=== PATIENT | male | born 1995 | race Caucasian/White ===

== ENCOUNTER 2016-11-21 14:59 | Emergency (ER) | payer OTHER ==
[2016-11-21 15:33] VITALS: BP 142/72
--- NOTE | 2016-11-21 15:36 | UC ---
Skin Complaint HPI - HPI Summary HPI Summary: The patient comes in today for: 1. Lump on chest: Onset: "A few days." Palliative/provocative: Nothing makes them better or worse. Quality: Soreness to touch. Region: Right nipple area. Severity: 2/10 Time: Constant. Associated symptoms: Discharge: None. Injury: None. Previous disease: None. Redness: Present Swelling: Present. * - History of Current Complaint Time Seen by Provider: 11/21/16 15:22 Stated Complaint: LUMP IN CHEST Hx Obtained From: Patient, Family/Spanish Lecturer - Allergy/Home Medications Allergies/Adverse Reactions: Allergies Allergy/AdvReac Type Severity Reaction Status Date / Time No Known Allergies Allergy Verified 08/27/15 14:06 Review of Systems Constitutional: Negative Skin: Rash Eyes: Negative ENT: Negative Respiratory: Negative Cardiovascular: Negative Gastrointestinal: Negative Genitourinary: Negative All Other Systems Reviewed And Are Negative: Yes PMH/Surg Hx/FS Hx/Imm Hx Previously Healthy: No - Lyme disease in remission. Endocrine History Of: Denies: Diabetes, Thyroid Disease, Hyperthyroidism, Hypothyroidism, Dyslipidemia Cardiovascular History Of: Denies: Cardiac Disorders, Hypertension, Pacemaker/ICD, Myocardial Infarction , Congestive Heart Failure, Atrial Fibrillation, Deep Vein Thrombosis, Bleeding Disorders Respiratory History Of: Denies: COPD, Asthma, Bronchitis, Pneumonia, Pulmonary Embolism GI/ History Of: Denies: Gastroesophageal Reflux, Ulcer, Gastrointestinal Bleed, Gall Bladder Disease, Kidney Stones, Diverticulitis, Renal Disease, Urosepsis Neurological History Of: Denies: TIA, CVA, Dementia, Seizures, Migraine Psychological History Of: Denies: Anxiety, Depression, Bipolar Disorder, Schizophrenia, Post Traumatic Stress Disorder Cancer History Of: Denies: Lung Cancer, Colorectal Cancer, Breast Cancer, Prostate Cancer, Cervical Cancer Other History Of: Negative For: HIV, Hepatitis B, Hepatitis C, Anticoagulant Therapy - Surgical History Surgical History: Yes Surgery Procedure, Year, and Place: tissue removed at wound clinic on left foot x 32 - Family History Known Family History: Negative: Cardiac Disease, Hypertension - Social History Occupation: Unemployed Alcohol Use: Occasionally Substance Use Type: Marijuana Smoking Status (MU): Light Every Day Tobacco Smoker Amount Used/How Often: 2-3 per week - Immunization History Most Recent Tetanus Shot: UTD as child with vaccines Physical Exam Triage Information Reviewed: Yes Appearance: Well-Appearing, No Pain Distress, Well-Nourished Vital Signs Reviewed: Yes Eyes: Positive: Conjunctiva Clear. Negative: Discharge ENT: Positive: Hearing grossly normal. Negative: Pharyngeal erythema, Nasal congestion, Nasal drainage, TM bulging, TM dull, TM red, Tonsillar swelling, Tonsillar exudate Dental: Negative: Gross Decay/Caries @, Dental Fracture @ Neck: Positive: Supple, Nontender, No Lymphadenopathy. Negative: Nuchal Rigidity Respiratory: Positive: Chest non-tender, Lungs clear, No respiratory distress, No accessory muscle use. Negative: Crackles, Wheezing Cardiovascular: Positive: RRR, No Murmur Abdomen Description: Positive: Nontender, No Organomegaly, Soft. Negative: Distended, Guarding Musculoskeletal: Positive: Strength Intact, ROM Intact, No Edema Neurological: Positive: Alert, Muscle Tone Normal Psychological: Positive: Normal Response To Family, Age Appropriate Behavior, Consolable Skin: Positive: Other - Right nipple: At the 1 o'clock, and the 9 o'clock positions of the peripheral aerolar area, there were well-rounded, non-tender masses about 3-4 mm in size. There was no erythema of these areas. No nipple discharge, and no gynecomastia. There were three follicular, pustular lesions above and to the side of the right nipple, but these were not of concern to the patient.. Negative: rashes, breakdown Course/Dx - Course Course Of Treatment: Patient and his mother were told of the diagnostic and treatment options. At this time, they would like to see his primary care provider for further evaluation and treatment and if a surgical referral is desired, they will request the referral from their primary care provider. - Differential Diagnoses - Skin Complaint Differential Diagnoses: Tinea, Urticaria - Diagnoses Provider Diagnoses: Right nipple/breast masses. Discharge - Discharge Plan Condition: Stable Disposition: HOME Referrals: Josue Burns MD [Primary Care Provider] - () Additional Instructions: Please contact your primary care provider's office this coming Wednesday for a re- evaluation of your right nipple masses.
== END 2016-11-21 16:24 | disposition home or self-care (01) ==
LOC: UCEAST 14:59
DX: N63 Unspecified lump in breast (principal); F12.90 Cannabis use, unspecified, uncomplicated; Z72.0 Tobacco use
CPT/HCPCS: 99211; G0463

== ENCOUNTER 2017-05-15 18:10 | Emergency (ER) | payer SELFPAY ==
[2017-05-15 18:44] VITALS: BP 137/66
[2017-05-15] MEDS ORDERED: Tetan/Diph/Pertus SYR(Tdap)* 0.5 ML SYR(BOOSTRIX) use SYR IM ONE (18:44)
[2017-05-15] MEDS ORDERED: Lidocaine 2% PF * 5 ML VIAL INJ ONE (19:04)
--- NOTE | 2017-05-15 21:06 | UC ---
General HPI - HPI Summary HPI Summary: 1) WHILE MAKING VALERIYI AT WORK , VALERIYI GLASS BROKE, CUT RIGHT HAND WITH GLASS. LAST TETANUS UNKNOWN. 2) THREE DAYS OF SORE THROAT, GETS FREQUENT STREP, WOULD ALSO LIKE THI SCHECKED OUT. - History of Current Complaint Chief Complaint: UCLaceration Stated Complaint: HAND LAC Time Seen by Provider: 05/15/17 18:34 Hx Obtained From: Patient Onset/Duration: Sudden Onset, Lasting Hours Onset Severity: Moderate Current Severity: Moderate Pain Intensity: 5 Associated Signs & Symptoms: Positive: Trauma. Negative: Abdominal Pain, Back Pain, Cough, Chest Pain, Dizziness, Diarrhea, Dysuria, Edema, Fever, Headache - Allergy/Home Medications Allergies/Adverse Reactions: Allergies Allergy/AdvReac Type Severity Reaction Status Date / Time No Known Allergies Allergy Verified 05/15/17 18:34 Home Medications: Home Medications NK [No Home Medications Reported] 05/15/17 [History Confirmed 05/15/17] PMH/Surg Hx/FS Hx/Imm Hx Previously Healthy: Yes Other History Of: Negative For: HIV, Hepatitis B, Hepatitis C, Anticoagulant Therapy - Surgical History Surgical History: Yes Surgery Procedure, Year, and Place: [facility] - 2012. tissue removed at wound clinic on left foot x 32 - Family History Known Family History: Negative: Cardiac Disease, Hypertension, Blood Disorder - Social History Alcohol Use: Occasionally Substance Use Type: Marijuana Smoking Status (MU): Light Every Day Tobacco Smoker Amount Used/How Often: 2-3 per week - Immunization History Most Recent Tetanus Shot: UTD as child with vaccines Review of Systems Constitutional: Negative Skin: Other - LACERATION RIGHT HAND Eyes: Negative ENT: Sore Throat Respiratory: Negative Cardiovascular: Negative Gastrointestinal: Negative Genitourinary: Negative Motor: Negative Neurovascular: Negative Musculoskeletal: Negative Neurological: Negative Psychological: Negative All Other Systems Reviewed And Are Negative: Yes Physical Exam Triage Information Reviewed: Yes Appearance: Well-Appearing, No Pain Distress, Well-Nourished Vital Signs: Initial Vital Signs Temp 97.8 F 05/15/17 18:35 Pulse 79 05/15/17 18:35 Resp 16 05/15/17 18:35 BP 137/66 05/15/17 18:35 Pulse Ox 97 05/15/17 18:35 Vital Signs Reviewed: Yes Eye Exam: Normal ENT: Positive: Pharyngeal erythema, TMs normal, Tonsillar swelling Dental Exam: Normal Neck exam: Normal Neck: Positive: Supple, Nontender, No Lymphadenopathy Respiratory Exam: Normal Respiratory: Positive: Chest non-tender, Lungs clear, Normal breath sounds, No respiratory distress, No accessory muscle use Cardiovascular Exam: Normal Cardiovascular: Positive: RRR, No Murmur, Pulses Normal Abdominal Exam: Normal Abdomen Description: Positive: Nontender, No Organomegaly Musculoskeletal Exam: Normal Musculoskeletal: Positive: Strength Intact, ROM Intact Neurological Exam: Normal Psychological Exam: Normal Skin: Positive: Other - LACERATION RIGHT HAND Procedures - Laceration/Wound Repair 1 Location: upper extremity - RIGHT HAND Description: Linear Anesthesia: Local, 2.0% Length, Depth and Shape: 4cm X 5mm X 8mm Laceration/Wound Explored: clean, no foreign body removed Closure: Single Layer - 5 X 4-0 PROLENE Suture Type: Prolene Sterile Dressing Applied?: Yes Course/Dx - Differential Dx - Multi-Symptom Differential Diagnoses: Other - LACERATION, TONSILLITIS Provider Diagnoses: LACERATION RIGHT HAND, TONSILLITIS Discharge - Discharge Plan Condition: Stable Disposition: HOME Patient Education Materials: Care For Your Stitches (ED), Laceration (ED), Tonsillitis (ED) Forms: *Work Release Referrals: Juan Francisco Damon MD [Medical Doctor] - Tyron Mazariegos NP [Primary Care Provider] - Additional Instructions: please have sutures removed in TEN days Images Hands: 1 - FOUR CM LACERATION HERE
== END 2017-05-15 19:41 | disposition home or self-care (01) ==
LOC: UCEAST 18:10
DX: S61.411A Laceration without foreign body of right hand, initial encounter (principal); W25.XXXA Contact with sharp glass, initial encounter; Y93.G1 Activity, food preparation and clean up; Y92.000 Kitchen of unspecified non-institutional (private) residence as the place of occurrence of the external cause; Y99.9 Unspecified external cause status; Z23 Encounter for immunization; Z72.0 Tobacco use
CPT/HCPCS: 12002; 87651; 90471; 90715; 99211; G0463

== ENCOUNTER 2017-05-15 18:10 | Emergency (ER) | payer OTHER ==
[2017-05-15 19:58] VITALS: BP 137/66
--- NOTE | 2017-06-10 13:34 | UC ---
Throat Pain/Nasal Elmer HPI - HPI Summary HPI Summary: SERVICE DATE 05/15/17: THREE DAYS OF SORE THROAT, GETS FREQUENT STREP. - History of Current Complaint Chief Complaint: UCRespiratory Stated Complaint: SORE THROAT Hx Obtained From: Patient, Family/Optical Glass Inspector Onset/Duration: Sudden Onset, Lasting Days, Still Present Pain Intensity: 5 Cough: None Associated Signs & Symptoms: Positive: Hoarseness. Negative: Fever - Epiglottits Risk Factors Epiglottis Risk Factors: Negative - Allergies/Home Medications Allergies/Adverse Reactions: Allergies Allergy/AdvReac Type Severity Reaction Status Date / Time No Known Allergies Allergy Verified 05/15/17 18:34 PMH/Surg Hx/FS Hx/Imm Hx Previously Healthy: Yes Other History Of: Negative For: HIV, Hepatitis B, Hepatitis C, Anticoagulant Therapy - Surgical History Surgical History: Yes Surgery Procedure, Year, and Place: [facility] - 2012. tissue removed at wound clinic on left foot x 32 - Family History Known Family History: Negative: Cardiac Disease, Hypertension - Social History Occupation: Employed Full-time Lives: With Family Alcohol Use: Occasionally Substance Use Type: Marijuana Smoking Status (MU): Light Every Day Tobacco Smoker Amount Used/How Often: 2-3 per week Cessation Counseling: Patient Advised to Stop - Immunization History Most Recent Tetanus Shot: UTD as child with vaccines Review of Systems Constitutional: Negative Skin: Negative Eyes: Negative ENT: Sore Throat Respiratory: Negative Cardiovascular: Negative Gastrointestinal: Negative Genitourinary: Negative Motor: Negative Neurovascular: Negative Musculoskeletal: Negative Neurological: Negative Psychological: Negative All Other Systems Reviewed And Are Negative: Yes Physical Exam Triage Information Reviewed: Yes Appearance: Well-Appearing, No Pain Distress, Well-Nourished Vital Signs: Initial Vital Signs Temp 97.8 F 05/15/17 18:18 Pulse 79 05/15/17 18:18 Resp 16 05/15/17 18:18 BP 137/66 05/15/17 18:18 Pulse Ox 97 05/15/17 18:18 Vital Signs Reviewed: Yes Eye Exam: Normal ENT: Positive: Hearing grossly normal, Pharyngeal erythema, TMs normal, Tonsillar swelling Dental Exam: Normal Neck exam: Normal Neck: Positive: Supple, Nontender, No Lymphadenopathy Respiratory Exam: Normal Respiratory: Positive: Chest non-tender, Lungs clear, Normal breath sounds, No respiratory distress, No accessory muscle use Cardiovascular Exam: Normal Cardiovascular: Positive: RRR, No Murmur, Pulses Normal, Brisk Capillary Refill Abdominal Exam: Normal Abdomen Description: Positive: Nontender, No Organomegaly Musculoskeletal Exam: Normal Musculoskeletal: Positive: Strength Intact, ROM Intact, No Edema Neurological Exam: Normal Psychological Exam: Normal Skin: Positive: Other - LACERATION RIGHT HAND Throat Pain/Nasal Course/Dx - Differential Dx/Diagnosis Differential Diagnosis/HQI/PQRI: Tonsillitis Provider Diagnoses: TONSILLITIS Discharge - Discharge Plan Condition: Stable Disposition: HOME
== END 2017-05-15 19:50 | disposition home or self-care (01) ==
LOC: UCEAST 19:46
DX: J03.90 Acute tonsillitis, unspecified (principal); F17.210 Nicotine dependence, cigarettes, uncomplicated
CPT/HCPCS: 99211; G0463

== ENCOUNTER 2018-11-13 22:33 | Emergency (ER) | payer OTHER ==
[2018-11-13 22:41] VITALS: BP 140/89
[2018-11-13] MEDS ORDERED: Sulfamethox/Trimethoprim DS 800/160* TAB PO ONE (23:00)
--- NOTE | 2018-11-13 23:01 | ED ---
Shortness of Breath - HPI Summary HPI Summary: 23-year-old male presents lesion above left nipple for the past four days. He states that there is some redness to the area. He also notes some pain. He states has been place heat on the area. He states this never happened before. He denies any drainage from the area. No fever. No chest pain or shortness breath. No recent illness. Has no medical conditions. - History of Current Complaint Chief Complaint: EDGeneral Time Seen by Provider: 11/13/18 22:45 - Allergy/Home Medications Allergies/Adverse Reactions: Allergies Allergy/AdvReac Type Severity Reaction Status Date / Time No Known Allergies Allergy Verified 11/13/18 22:41 PMH/Surg Hx/FS Hx/Imm Hx Endocrine/Hematology History: Denies: Hx Anticoagulant Therapy, Hx Diabetes, Hx Thyroid Disease Cardiovascular History: Denies: Hx Congestive Heart Failure, Hx Deep Vein Thrombosis, Hx Hypertension , Hx Myocardial Infarction, Hx Pacemaker/ICD Respiratory History: Denies: Hx Asthma, Hx Chronic Obstructive Pulmonary Disease (COPD), Hx Lung Cancer, Hx Pneumonia, Hx Pulmonary Embolism GI History: Denies: Hx Gall Bladder Disease, Hx Gastrointestinal Bleed, Hx Ulcer, Hx Urosepsis History: Denies: Hx Kidney Stones, Hx Renal Disease Musculoskeletal History: Denies: Hx Rheumatoid Arthritis, Hx Osteoporosis Neurological History: Denies: Hx Dementia, Hx Migraine, Hx Seizures, Hx Transient Ischemic Attacks (TIA) Psychiatric History: Denies: Hx Anxiety, Hx Depression, Hx Schizophrenia, Hx Bipolar Disorder - Cancer History Cancer Type, Location and Year: none - Surgical History Surgery Procedure, Year, and Place: [facility] - 2012. tissue removed at wound clinic on left foot x 32 Infectious Disease History: No Infectious Disease History: Denies: Hx Clostridium Difficile, Hx Hepatitis, Hx Human Immunodeficiency Virus (HIV), Hx of Known/Suspected MRSA, Hx Shingles, Hx Tuberculosis, Hx Known/ Suspected VRE, Hx Known/Suspected VRSA, History Other Infectious Disease, Traveled Outside the [place] in Last 30 Days - Family History Known Family History: Negative: Cardiac Disease, Hypertension, Blood Disorder - Social History Alcohol Use: Occasionally Substance Use Type: Reports: Marijuana Smoking Status (MU): Light Every Day Tobacco Smoker Amount Used/How Often: 2-3 per week Review of Systems Negative: Fever Negative: Chest Pain Negative: Shortness Of Breath Positive: Rash All Other Systems Reviewed And Are Negative: Yes Physical Exam Triage Information Reviewed: Yes Vital Signs On Initial Exam: Initial Vitals Temp Pulse Resp BP Pulse Ox 98.2 F 74 18 140/89 97 11/13/18 22:38 11/13/18 22:38 11/13/18 22:38 11/13/18 22:38 11/13/18 22:38 Vital Signs Reviewed: Yes Appearance: Positive: Well-Appearing Skin: Positive: Warm, Dry, Other - area of loculation felt above left nipple with minimially erythema, no fluctuance Head/Face: Positive: Normal Head/Face Inspection Eyes: Positive: Normal, Conjunctiva Clear ENT: Positive: Pharynx normal Respiratory/Lung Sounds: Positive: Clear to Auscultation, Breath Sounds Present Cardiovascular: Positive: Normal, RRR Musculoskeletal: Positive: Normal Neurological: Positive: Normal Psychiatric: Positive: Normal Diagnostics - Vital Signs Vital Signs Temp Pulse Resp BP Pulse Ox 11/13/18 22:38 98.2 F 74 18 140/89 97 - Laboratory Lab Statement: Any lab studies that have been ordered have been reviewed, and results considered in the medical decision making process. Course/Dx - Course Course Of Treatment: 23-year-old male presents lesion above left nipple for the past four days. He states that there is some redness to the area. He also notes some pain. He states has been place heat on the area. He states this never happened before. He denies any drainage from the area. No fever. No chest pain or shortness breath. No recent illness. Has no medical conditions. On exam has a 3 cm x 2 cm area of loculation felt with minimal erythema present. No fluctuance noted. Area is not ready to drain at this time. Will place on Bactrim. Told to continue heat on the area. Told if area becomes more soft to return to the ER or urgent care to have the area drained. Patient understands agrees with plan. - Diagnoses Differential Diagnosis/HQI/PQRI: Positive: Other - abscess, cellulitis, contact dermatitis Provider Diagnoses: Abscess Discharge - Sign-Out/Discharge Documenting (check all that apply): Patient Departure - Discharge Plan Condition: Good Disposition: HOME Prescriptions: Sulfamethox/Trimethoprim DS* [Bactrim DS 800/160 TAB*] 1 tab PO BID #[id number] tab Patient Education Materials: Abscess (ED) Referrals: Tyron Mazariegos [employer] [Primary Care Provider] - Additional Instructions: Take antibiotic twice a day for 10 days, first dose given in ED Apply warm compresses to area Take ibuprofen or Tylenol for pain every 6 hours If area comes to a head that can be drained return to ED or urgent care Return to ED if develop fever, area of redness spreads, or any new or worsening symptoms - Billing Disposition and Condition Condition: GOOD Disposition: Home
== END 2018-11-13 23:11 | disposition home or self-care (01) ==
LOC: ED 22:33
DX: N61.1 Abscess of the breast and nipple (principal); F17.210 Nicotine dependence, cigarettes, uncomplicated
CPT/HCPCS: 99282; A9270-GY